=== PATIENT | female | born 2000 | race Caucasian/White ===

== ENCOUNTER 2023-06-01 04:27 | Emergency (ER) | payer MEDICAID ==
[~2023-06-01] VITALS: Ht 165.1 cm; Wt 63.5 kg
[2023-06-01 04:35] VITALS: BP 129/75; TEMP 98.1
[2023-06-01 05:07] VITALS: O2SAT 98
== END 2023-06-01 05:12 | disposition home or self-care (01) ==
LOC: ER 04:30
DX: M79.645 Pain in left finger(s) (principal); V89.2XXA Person injured in unspecified motor-vehicle accident, traffic, initial encounter; Y93.89 Activity, other specified; Y92.89 Other specified places as the place of occurrence of the external cause; Y99.8 Other external cause status